=== PATIENT | female | born 1965 | race Caucasian/White ===

== ENCOUNTER 2019-10-21 09:40 | Emergency (ER) | payer OTHER ==
[~2019-10-21] VITALS: Ht 170.2 cm; Wt 71.7 kg
[2019-10-21 09:47] VITALS: Ht 170.2 cm; Wt 71.7 kg
[2019-10-21 10:57] VITALS: BP 119/49
== END 2019-10-21 10:57 | disposition home or self-care (01) ==
LOC: ED 09:40
DX: M65.4 Radial styloid tenosynovitis [de Quervain] (principal); R51 Headache
CPT/HCPCS: Q0092

== ENCOUNTER → 2019-12-03 | Outpatient (CLI) | payer OTHER ==
[2019-12-03 08:55] LABS: ALBUMIN 4.3 g/dL (3.4-5.0); CALCIUM 9.6 mg/dL (8.5-10.1); CARBON DIOXIDE 28.9 mmol/L (21-32); CHLORIDE SERUM 108 mmol/L (98-107); CREATININE SERUM 0.7 mg/dL (0.6-1.0); GFR1 > 60 mL/min; GLUCOSE SERUM 95 mg/dL (74-106); POTASSIUM SERUM 4.1 mmol/L (3.5-5.1); SODIUM SERUM 145 mmol/L (136-145)
[2019-12-03 09:08] LABS: BASOPHIL % 0.8 % (0-2); PLATELET COUNT 251 x10^3mcL (130-400); RED CELL DISTRIBUTION WIDTH 13.7 % (11.5-14.5)
[2019-12-03 09:33] LABS: ALKALINE PHOSPHATASE 68 U/L (46-116); ALT/SGPT 27 U/L (14-59); AST/SGOT 16 U/L (15-37); BILIRUBIN TOTAL 0.57 mg/dL (0.20-1.00); CHOLESTEROL 164 mg/dL (<200); TOTAL PROTEIN, SERUM 7.6 g/dL (6.4-8.2); TRIGLYCERIDES 72 mg/dL (<150)
[2019-12-03 09:35] LABS: HDL CHOLESTEROL 82 mg/dL (40-60)
[2019-12-03 10:53] LABS: UA SPECIFIC GRAVITY 1.015 (1.005-1.035); microscopic required? YES; urine erythrocyte TRACE (NEGATIVE)
[2019-12-03 11:27] LABS: ERYTHROCYTE SED RATE 18 mm/hr (0-30)
== END | disposition home or self-care (01) ==
LOC: LB 07:57
DX: R51 Headache (principal)
CPT/HCPCS: 82670

== ENCOUNTER → 2019-12-08 | Outpatient (CLI) | payer OTHER ==
[2019-12-08 06:59] LABS: UA SPECIFIC GRAVITY 1.025 (1.005-1.035); microscopic required? YES; urine erythrocyte NEGATIVE (NEGATIVE)
== END | disposition home or self-care (01) ==
LOC: LB 06:04
PROC: BW28ZZZ Computerized Tomography (CT Scan) of Head (ICD-10-PCS; principal; 2019-12-08)
DX: R51 Headache (principal); Z12.31 Encounter for screening mammogram for malignant neoplasm of breast
CPT/HCPCS: 77067

== ENCOUNTER → 2019-12-20 | Outpatient (CLI) | payer OTHER | END | disposition home or self-care (01) | LOC: MA 14:08 | PROC: BH02ZZZ Plain Radiography of Bilateral Breasts (ICD-10-PCS; principal; 2019-12-20) | DX: R92.8 Other abnormal and inconclusive findings on diagnostic imaging of breast (principal) | CPT/HCPCS: 77065 ==

== ENCOUNTER → 2020-01-01 | Outpatient (CLI) | payer OTHER | END | disposition home or self-care (01) | LOC: LB 11:01 | DX: J30.1 Allergic rhinitis due to pollen (principal) | CPT/HCPCS: 86003 ==

== ENCOUNTER → 2020-01-12 | Outpatient (CLI) | payer OTHER | END | disposition home or self-care (01) | LOC: US 05:55 | PROC: BH41ZZZ Ultrasonography of Left Breast (ICD-10-PCS; principal; 2020-01-12) | DX: R92.8 Other abnormal and inconclusive findings on diagnostic imaging of breast (principal) | CPT/HCPCS: 76641 ==

== ENCOUNTER 2020-03-30 05:56 | Day surgery (SDC) | payer OTHER ==
[2020-03-23 12:50] LABS: CALCIUM 9.1 mg/dL (8.5-10.1); CARBON DIOXIDE 25.9 mmol/L (21-32); CHLORIDE SERUM 105 mmol/L (98-107); GFR1 > 60 mL/min; GLUCOSE SERUM 97 mg/dL (74-106); POTASSIUM SERUM 3.7 mmol/L (3.5-5.1); SODIUM SERUM 141 mmol/L (136-145)
[2020-03-23 12:55] LABS: ALBUMIN 3.8 g/dL (3.4-5.0); ALKALINE PHOSPHATASE 72 U/L (46-116); ALT/SGPT 23 U/L (14-59); AST/SGOT 25 U/L (15-37); BILIRUBIN TOTAL 0.39 mg/dL (0.20-1.00); TOTAL PROTEIN, SERUM 7.3 g/dL (6.4-8.2)
[2020-03-23 13:04] LABS: BASOPHIL % 0.8 % (0-2); PLATELET COUNT 229 x10^3mcL (130-400); RED CELL DISTRIBUTION WIDTH 13.7 % (11.5-14.5)
[~2020-03-30] VITALS: Ht 170.2 cm; Wt 72.6 kg
[2020-03-30 06:27] VITALS: BP 115/61
[2020-03-30 11:36] VITALS: BP 123/87
== END 2020-03-30 11:40 | disposition home or self-care (01) ==
LOC: DS 05:56 → OR 07:30 → DS 07:30
PROVIDERS: ATTEND Surgery
DX: K64.2 Third degree hemorrhoids (principal); K64.4 Residual hemorrhoidal skin tags; I10 Essential (primary) hypertension; D64.9 Anemia, unspecified; J45.909 Unspecified asthma, uncomplicated; Z79.899 Other long term (current) drug therapy; Z20.828 Contact with and (suspected) exposure to other viral communicable diseases
CPT/HCPCS: J0694; J3480; J3490; U0003-CS

== ENCOUNTER 2020-04-08 05:37 | Emergency (ER) | payer OTHER ==
[~2020-04-08] VITALS: Ht 170.2 cm; Wt 71.9 kg
[2020-04-08 05:47] VITALS: Ht 170.2 cm; Wt 71.9 kg
[2020-04-08 06:49] VITALS: BP 135/72
== END 2020-04-08 06:49 | disposition home or self-care (01) ==
LOC: ED 05:37
DX: K64.4 Residual hemorrhoidal skin tags (principal); K62.5 Hemorrhage of anus and rectum; Z91.040 Latex allergy status